=== PATIENT | male | born 1970 | race Caucasian/White ===

== ENCOUNTER 2018-03-19 10:11 | Emergency (ER) | payer BC ==
[2018-03-19] MEDS ORDERED: Ketorolac Tromethamine 30 MG/ML VIAL ONE (10:56)
[2018-03-19] MEDS ORDERED: Morphine 4 MG/ML VIAL ONE (10:56)
--- NOTE | 2018-03-19 12:29 | RAD ---
ABDOMEN ONE VIEW: History: Renal stone. Right flank pain. Comparison: 03-05-18 FINDINGS: Visualized bowel gas pattern is nonspecific. Vascular calcifications overlie the pelvis. The oval calcification previously seen over the expected location of the right ureteropelvic junction is no longer apparent. Now just to the right of the lower sacrum, at the expected location of the di stal right ureter, an oval calcification of similar size, approximately 0.5 cm in length is apparent. There are degenerative changes of each hip. IMPRESSION: 1. Probable distal right ureteral calculus. 2. Findings were discussed with Dr. Soto at 1120 hours. Code CR POS: TPC
== END 2018-03-19 13:55 | disposition home or self-care (01) ==
LOC: ERS 10:11
DX: N20.0 Calculus of kidney (principal); E78.5 Hyperlipidemia, unspecified; I10 Essential (primary) hypertension; F32.9 Major depressive disorder, single episode, unspecified; F17.210 Nicotine dependence, cigarettes, uncomplicated
CPT/HCPCS: 74018; 96374; 96375; J1885; J2270

== ENCOUNTER 2018-04-08 08:34 | Outpatient (CLI) | payer BC ==
[2018-04-08 09:43] LABS: Hemoglobin 14.7 g/dL (14.0-18.0); Mean Corpuscular HGB CONC 34.3 g/dL (32.0-36.0); Mean Corpuscular Hemoglobin 30.6 pg (27.0-31.0); Mean Corpuscular Volume 89.2 fl (80.0-94.0); Mean Platelet Volume 9.2 fL (7.4-10.4); Platelet Count 136 thou/uL (130-400); RBC Distribution Width 11.7 % (11.5-14.5); Red Blood Cell (RBC) Count 4.82 mill/uL (4.70-6.10); White Blood Cell (WBC) Count 5.4 thou/uL (4.8-10.8)
[2018-04-08 09:44] LABS: Platelet Count 136 thou/uL (130-400)
[2018-04-08 10:01] LABS: Anion Gap 9 mmol/L (10-20); BUN (Urea Nitrogen) 20 mg/dL (8.9-20.6); Calc. Creatinine Clearance 0 mL/min (70-130); Calcium 9.6 mg/dL (7.8-10.44); Carbon Dioxide 28 mmol/L (22-29); Chloride 106 mmol/L (98-107); Estimated GFR-MDRD 55; Glucose 100 mg/dL (70-105); Potassium 4.9 mmol/L (3.5-5.1); Sodium 138 mmol/L (136-145)
--- NOTE | 2018-04-08 10:25 | RAD ---
SINGLE VIEW ABDOMEN: HISTORY: Preoperative radiograph. COMPARISON: Study from 03/19/[address] abdomen and pelvis from 03/24/2014. FINDINGS: A single view of the abdomen shows a nonspecific, nonobstructive bowel gas pattern. No obvious calci fications are seen projecting over either renal shadow. There are calcifications in the pelvis. One of the calcifications at the right aspect of the pelvis may represent a distal ureteral calcificatio n. IMPRESSION: Possible right distal ureteral calcification. POS: ALEJANDRA
--- NOTE | 2018-04-08 14:37 | EKG ---
Test Reason : Blood Pressure : / mmHG Vent. Rate : 064 BPM Atrial Rate : 064 BPM P-R Int : 190 ms QRS Dur : 094 ms QT Int : 404 ms P-R-T Axes : 060 061 024 degrees QTc Int : 416 ms Normal sinus rhythm Normal ECG When compared with ECG of 24-MAR-2014 08:40, No significant change was found Confirmed by DR. Noble BRUMFIELD ([id number]) on 04/08/2018 2:36:21 PM Referred By: TARA Confirmed By:DR. Noble BRUMFIELD
== END 2018-04-08 08:35 | disposition home or self-care (01) ==
LOC: LABBT 08:34
PROVIDERS: ATTEND Urology
DX: Z01.818 Encounter for other preprocedural examination (principal); N20.1 Calculus of ureter
CPT/HCPCS: 74018; 80048; 85027; 85576; 93005; 93010

== ENCOUNTER 2018-04-09 07:26 | Day surgery (SDC) | payer BC ==
[2018-04-08 08:50] VITALS: BMI 31.3
[2018-04-09] MEDS ORDERED: Iothalamate Meglumine 60% 50 ML VIAL FS ONE (09:11)
[2018-04-09] MEDS ORDERED: Fentanyl 250 MCG/5 ML VIAL ONE (10:13)
--- NOTE | 2018-04-09 14:19 | OP ---
DATE OF PROCEDURE: 04/09/2018 PREOPERATIVE DIAGNOSIS: Right distal ureteral stone. POSTOPERATIVE DIAGNOSIS: Right distal ureteral stone. PROCEDURE PERFORMED: Right ESWL. SURGEON: Dr. Bacilio Arriola. ANESTHETIC: General. ESTIMATED BLOOD LOSS: Not recorded. FINDINGS: There was a 6 x 3 right lower third distal ureteral stone, was treated with about 2000 pratibha cks, maximum K level of 6. It did appear to fragment well. A stent was not placed. OPERATIVE TECHNIQUE: Obtained written and verbal consent from the patient. After documenting the no rmal platelet function assay and blood work and after being sure that his preoperative KUB done yeste rday showed the stone, he was taken back to the operating suite. He was placed in supine position on the treatment table. He was given a general anesthetic and oral obturator intubation. PlexiPulses placed on his lower extremities and turned on. The fluoroscopy unit was used to look for the stone. The stone was a little bit hard to see, but was able to be seen. The stone was placed in treatment focal point. Shockwave therapy was then commenced. We did not have to do a pause of treatment, lurdes use we are treating in the distal ureter. Fluoroscopy was used intermittently to document stone frag mentation and positioning. After a few 100 shocks, it looked liked the stone was already starting to break up. After about 2000 shocks, we would see no remaining fragments. At this point, the procedu re was stopped. He was awakened, extubated, and taken by a stretcher to the recovery room.
[2018-04-09] MEDS ORDERED: Dexamethasone 20 MG/5 ML VIAL ONE (15:06)
[2018-04-09] MEDS ORDERED: Lidocaine 1% PF 5 ML VIAL ONE (15:06)
[2018-04-09] MEDS ORDERED: PROPOFOL 200 MG/20 ML VIAL ONE (15:06)
== END 2018-04-09 13:30 | disposition home or self-care (01) ==
LOC: SDC 07:26
PROVIDERS: ATTEND Urology
PROC: 0TF6XZZ Fragmentation in Right Ureter, External Approach (ICD-10-PCS; principal; 2018-04-09)
DX: N20.1 Calculus of ureter (principal); E78.00 Pure hypercholesterolemia, unspecified; I10 Essential (primary) hypertension; Z79.82 Long term (current) use of aspirin; Z79.899 Other long term (current) drug therapy
CPT/HCPCS: J1100; J2001; J2704; J3010; Q9961

== ENCOUNTER 2018-12-05 07:45 | Outpatient (CLI) | payer BC ==
--- NOTE | 2018-12-05 09:54 | MRI ---
MRI CERVICAL SPINE WITHOUT CONTRAST: HISTORY: Cervical radiculopathy. Right arm numbness involving the 2nd through 4th digits of the right hand. COMPARISON: None. TECHNIQUE: MRI cervical spine is performed without intravenous Gadolinium administration. Multisequential, mult iplanar imaging is performed. FINDINGS: Straightening of the normal cervical lordosis. Cervical spine vertebral body height is maintained. There is appropriate T1 marrow signal intensity of the cervical vertebrae. No STIR hyperintensity to suggest edema or ligamentous injury. Visualized brain parenchymal, cervicomedullary junction, cervical cord, and the upper thoracic cord h ave a normal size and signal intensity. C2-C3: No significant central canal stenosis. Neural foramina are patent. C3-C4: Mild loss of disk space height. Generalized disk-osteophyte complex. Mild central canal enriqueta nosis. Mild bilateral foraminal narrowing. C4-C5: There is a generalized disk-osteophyte complex that abuts the thecal sac. Degenerative rowley es in both uncovertebral joints result in moderate bilateral foraminal narrowing. C5-C6: Generalized disk-osteophyte complex results in mild central canal stenosis. Mild bilateral f oraminal narrowing. C6-C7: Generalized disk-osteophyte complex results in mild central canal stenosis. Moderate bilater al foraminal narrowing. C7-T1: No significant central canal stenosis or neural foraminal narrowing. IMPRESSION: Degenerative changes of the cervical spine as described above. POS: ALEJANDRA
== END 2018-12-05 07:46 | disposition home or self-care (01) ==
LOC: TBSIIMAG 07:45
PROVIDERS: ATTEND Neurological Surgery
DX: M47.22 Other spondylosis with radiculopathy, cervical region (principal)
CPT/HCPCS: 72141